=== PATIENT | male | born 1990 | race African-American/Black ===

== ENCOUNTER 2018-07-02 03:52 | Emergency (ER) | payer SELFPAY ==
[~2018-07-02] VITALS: Ht 182.9 cm; Wt 79.0 kg
[2018-07-02 06:03] VITALS: BP 128/65
[2018-07-02] MEDS ORDERED: CEFTRIAXONE SODIUM 250 MG/VIAL IM ONE (08:30)
[2018-07-02] MEDS ORDERED: AZITHROMYCIN 500 MG TABLET PO ONE (08:30)
[2018-07-02] MEDS ORDERED: LIDOCAINE HCL 1% 20ML VIAL (Pyxis) INJ ONE (08:44)
[2018-07-02] MEDS ORDERED: LIDOCAINE HCL 1% 20ML VIAL (Pyxis) INJ INFIL ONE (08:45)
[2018-07-04 04:34] LABS: CHLAMYDIA TRACHOMATIS NAA Negative (Negative); NEISSERIA GONORRHOEAE NAA Negative (Negative)
== END 2018-07-02 09:26 | disposition home or self-care (01) ==
LOC: ER 03:52
DX: Z20.2 Contact with and (suspected) exposure to infections with a predominantly sexual mode of transmission (principal); A59.9 Trichomoniasis, unspecified
CPT/HCPCS: 87491; 87591; 96372; 99283; J0696; J3490